=== PATIENT | male | born 1990 | race Caucasian/White ===

== ENCOUNTER 2020-09-10 04:31 | Emergency (ER) | payer SELFPAY ==
[~2020-09-10] VITALS: Ht 180.3 cm; Wt 145.1 kg
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
[2020-09-10] MEDS ORDERED: LIDOCAINE 1%-EPI 1:100,000 20 ML VIAL ONE (04:52)
--- NOTE | 2020-09-10 05:01 | NUR ---
[employer] at bedside for report
[2020-09-10] MEDS: TETRAcaine 5 ML BOTTLE EACHEYE ONE (05:05)
[2020-09-10] MEDS ORDERED: FLUORESCEIN SODIUM OPHTH 1 EA STRIP ONE (05:17)
[2020-09-10] MEDS: FLUORESCEIN SODIUM OPHTH 1 EA STRIP OP ONE (05:18)
[2020-09-10 05:48] VITALS: BP 131/83
--- NOTE | 2020-09-10 05:48 | NUR ---
Patient discharged to home in stable condition. Written and verbal after care instructions given. Patient verbalizes understanding of instruction. Pt ambulatory with a steady gait
== END 2020-09-10 05:49 | disposition home or self-care (01) ==
LOC: ER 04:33
DX: S01.01XA Laceration without foreign body of scalp, initial encounter (principal); S05.02XA Injury of conjunctiva and corneal abrasion without foreign body, left eye, initial encounter; S05.01XA Injury of conjunctiva and corneal abrasion without foreign body, right eye, initial encounter; T65.891A Toxic effect of other specified substances, accidental (unintentional), initial encounter; R51.9 Headache, unspecified; Z88.1 Allergy status to other antibiotic agents; Y08.89XA Assault by other specified means, initial encounter; Y93.89 Activity, other specified; Y92.89 Other specified places as the place of occurrence of the external cause; Y99.8 Other external cause status
CPT/HCPCS: 12001; 70450; 70486; 99285; A6403; J3490